=== PATIENT | male | born 1965 | race Asian ===

== ENCOUNTER 2020-02-08 23:50 | Inpatient (IN) | payer BC, OTHER ==
[~2020-02-08] VITALS: Ht 167.6 cm; Wt 69.2 kg
[2020-02-09 02:43] LABS: Red Blood Cells 4.86 10^6/uL (4.5-5.90); White Blood Cell 4.4 10^3/uL (4.4-10.8)
[2020-02-09 02:45] LABS: Hematocrit 49.6 % (41.0-53.0); Hemoglobin 16.3 g/dL (13.5-17.5); Mean Corpuscular Hemoglobin 33.6 pg (28.0-32.0); Platelet Count (auto) 70 10^3/uL (140-450)
[2020-02-09 02:59] LABS: Albumin 2.5 g/dL (3.4-5.0); Anion Gap 8 (5-15); BUN/Creatinine Ratio 17.5; Blood Urea Nitrogen 18 mg/dL (7-18); Calcium 7.9 mg/dL (8.5-10.1); Carbon Dioxide 22 mmol/L (21-32); Chloride 109 mmol/L (98-107); GFR African American 96 mL/min; GFR Non-African American 79 mL/min; Glucose 100 mg/dL (74-106); Sodium 139 mmol/L (136-145)
[2020-02-09 03:08] LABS: Alanine Aminotransferase 61 U/L (16-61); Alkaline Phosphatase 127 U/L (45-117); Aspartate Aminotransferase 142 U/L (15-37); Bilirubin, Total 1.7 mg/dL (0.2-1.0); Total Protein 6.9 g/dL (6.4-8.2)
[2020-02-09 03:11] LABS: Basophils % (manual) 0 (0.0-2.0); Blast Cells 0; Eosinophils % (manual) 0 (0-7); Metamyelocytes % 0; Myelocytes % 0; Promyelocytes % 0; Reactive Lymphocytes 0
[2020-02-09 03:36] LABS: Band Neutrophils % (manual) 5; Lymphocytes % (manual) 8 (10.0-50.0); Monocytes % (manual) 12 (0-12)
[2020-02-09] MEDS ORDERED: ACETAMINOPHEN 500 MG TAB PO PRN (05:45)
[2020-02-09] MEDS ORDERED: ONDANSETRON HCL 4 MG/2 ML VIAL IV PRN (05:45)
[2020-02-09] MEDS ORDERED: DOCUSATE SOD 100 MG CAP PO PRN (05:45)
[2020-02-09] MEDS ORDERED: NITROGLYCERIN 0.4 MG SL TAB SL PRN (05:45)
[2020-02-09] MEDS ORDERED: HYDROcodone-ACET 5/325MG TAB PO PRN (05:45)
[2020-02-09] MEDS ORDERED: MORPHINE SULF INJ 2 MG/ML SYRINGE 1ML IV PRN (05:45)
[2020-02-09 05:58] VITALS: BP 110/69
[2020-02-09] MEDS: ALBUTEROL SULF HFA 90MCG INH 200DOSE IN SCH ×3 (06:00→22:24)
[2020-02-09] MEDS: SODIUM CHLOR 0.9% PF (SALINE LOCK) 10ML VIAL/SYR IV SCH ×2 (06:48→14:00)
[2020-02-09] MEDS: BUDESONIDE (INHALATION) 180 MCG IH IN SCH ×2 (07:37→22:24)
[2020-02-09] MEDS ORDERED: DOXYCYCLINE 100MG/250ML 250 ML IV SCH (10:00)
[2020-02-09] MEDS: ZINC SULFATE 220mg CAP or TAB PO SCH (10:00)
[2020-02-09] MEDS: ENOXAPARIN SOD 40 MG/0.4 ML SYRINGE SC SCH (10:00)
[2020-02-09] MEDS ORDERED: PANTOPRAZOLE 40 MG/10 ML VIAL INJ IV SCH (10:00)
[2020-02-09] MEDS: ASCORBIC ACID 1,000 MG TAB PO SCH (10:00)
[2020-02-09] MEDS: DexAMETHasone SOD PHOS 10MG/1ML VIAL INJ IV SCH (10:00)
[2020-02-09] MEDS: CHOLECALCIFEROL (VITD3) 2,000 UNIT CAP PO SCH (10:00)
[2020-02-09] MEDS: MULTIPLE VITAMIN TAB PO SCH (10:00)
[2020-02-09] MEDS ORDERED: THIAMINE 100mg/ml INJ (200mg/2ml VIAL) IV ONE (15:00)
[2020-02-09] MEDS ORDERED: CYANOCOBALAMIN (B-12) 1000 MCG/1 ML VIAL IM ONE (15:00)
[2020-02-09] MEDS ORDERED: MULTIPLE VITAMINS W/ MINERALS TAB PO ONE (15:00)
[2020-02-09] MEDS ORDERED: FOLIC ACID 1 MG TAB PO ONE (15:00)
--- NOTE | 2020-02-09 21:49 | NUR ---
Respiratory note: PTS SPO2 CURRENTLY AT 87% ON 6L N/C. PT SWITCHED TO 8L OXYMIZER, SATS NOW AT 90-91%. NOTIFIED ER CHARGE OF PTS O2 SATS/OXYGEN DEMAND AND PT BEING IN TENT, STATES WILL TRY TO FIND HIM A BED IN ER. PTS 02 TANK 3/4 FULL AT THIS TIME.
[2020-02-09 22:43] LABS: Cholesterol 136 mg/dL (< 200); HDL Cholesterol 47 mg/dL (40-59); LDL Cholesterol 69 mg/dL (< 100); Triglycerides 106 mg/dL (< 150)
[2020-02-09] MEDS: CLINDAMYCIN 600MG IV 50 ML IV SCH (23:15)
[2020-02-10] MEDS: CLINDAMYCIN 600MG IV 50 ML IV SCH ×2 (05:58→14:00)
[2020-02-10] MEDS: BUDESONIDE (INHALATION) 180 MCG IH IN SCH ×2 (06:29→22:30)
[2020-02-10 06:32] LABS: Basophils # (auto) 0 10 ^3/uL (0-0.2); Eosinophils # (auto) 0 10 ^3/uL (0-0.8); Hematocrit 41.6 % (41.0-53.0); Monocytes # (auto) 0.5 10 ^3/uL (0-1.3); Neutrophils # (auto) 4.9 10 ^3/uL (1.6-8.6); Nucleated Red Blood Cells % 0.1 %
[2020-02-10 06:33] LABS: Hemoglobin 14.3 g/dL (13.5-17.5); Lymphocytes # (auto) 0.7 10 ^3/uL (0.4-5.4); Lymphocytes % (auto) 11.1 % (10.0-50.0); Mean Corpuscular Hemoglobin 34.8 pg (28.0-32.0); Mean Corpuscular Hgb Conc. 34.4 g/dL (32.0-36.0); Mean Corpuscular Volume 101.3 fL (80.0-100.0); Monocytes % (auto) 7.6 % (0.0-12.0); Neutrophils % (auto) 81.3 % (37.0-80.0); Platelet Count (auto) 72 10^3/uL (140-450); Red Cell Distribution Width 15.2 % (11.8-14.3)
[2020-02-10] MEDS: ALBUTEROL SULF HFA 90MCG INH 200DOSE IN SCH ×3 (06:39→22:30)
[2020-02-10 06:51] LABS: Calcium 7.7 mg/dL (8.5-10.1); Potassium 4.3 mmol/L (3.5-5.1)
[2020-02-10 06:55] LABS: BUN/Creatinine Ratio 23.8; Bilirubin, Total 1.2 mg/dL (0.2-1.0); Total Protein 5.5 g/dL (6.4-8.2)
[2020-02-10 07:00] LABS: Alcohol, Urine < 3.0 mg/dL (0-10); Amphetamine Screen, Urine NEGATIVE (NEGATIVE); Barbiturate Scree,Urine NEGATIVE (NEGATIVE); Benzodiazephine Screen, Urine NEGATIVE (NEGATIVE); Cannabinoid Screen, Urine NEGATIVE (NEGATIVE); Cocaine Screen, Urine NEGATIVE (NEGATIVE); Opiate Scree,Urine NEGATIVE (NEGATIVE); Phencyclidine Screen, Urine NEGATIVE (NEGATIVE)
[2020-02-10] MEDS: THIAMINE 100mg/ml INJ (200mg/2ml VIAL) IV SCH (08:38)
[2020-02-10] MEDS: DexAMETHasone SOD PHOS 10MG/1ML VIAL INJ IV SCH (08:38)
[2020-02-10] MEDS: MULTIPLE VITAMINS W/ MINERALS TAB PO SCH (08:39)
[2020-02-10] MEDS: MULTIPLE VITAMIN TAB PO SCH (08:39)
[2020-02-10] MEDS: CHOLECALCIFEROL (VITD3) 2,000 UNIT CAP PO SCH (08:39)
[2020-02-10] MEDS: ENOXAPARIN SOD 40 MG/0.4 ML SYRINGE SC SCH (08:39)
[2020-02-10] MEDS: ZINC SULFATE 220mg CAP or TAB PO SCH (08:39)
[2020-02-10] MEDS: ASCORBIC ACID 1,000 MG TAB PO SCH (08:39)
[2020-02-10] MEDS: FOLIC ACID 1 MG TAB PO SCH (08:39)
[2020-02-10] MEDS ORDERED: cefTRIAXone 1GM/50ML D5W 50 ML IV SCH (09:00)
[2020-02-10] MEDS: LORazepam 2MG/ML-1ML VIAL IV PRN ×2 (09:14→17:06)
[2020-02-10] MEDS ORDERED: REMDESIVIR PER PHARMACY IV SCH (11:45)
[2020-02-10] MEDS ORDERED: FUROSEMIDE 20 MG/2 ML VIAL IV ONE (16:30)
[2020-02-10] MEDS ORDERED: DOXYCYCLINE 100 MG TAB/CAP PO ONE (16:30)
[2020-02-10] MEDS ORDERED: POTASSIUM CHL 10 Meq TABLET PO ONE (16:30)
[2020-02-10] MEDS ORDERED: REMDESIVIR 200 MG in NS 210ml LOADING DOSE ADULT IV ONE (17:00)
[2020-02-10] MEDS ORDERED: DOXYCYCLINE 100 MG TAB/CAP ONE (17:02)
[2020-02-10 22:05] VITALS: BP 91/64
--- NOTE | 2020-02-10 22:05 | NUR ---
Telemetry admit from ER SHALONDA MANDEL admitted to Telemetry unit. Patient oriented to Lena Oleary, primary RN, unit, room, bed, and unit policies regarding patient care and visiting hours. Patient now on continuous telemetry monitoring, tele box #8 and telemetry reading on arrival to unit is NSR 67BPM. Patient placed on bedside oxygen 13L Oxymizer, weighed by bed scale and encouraged to call if they need something. All questions and concerns addressed, patient verbalized understanding. Patient is awake and alert x4, ambulatory. No s/s of distress noted at this time.
[2020-02-10] MEDS: FAMOTIDINE 20 MG TAB PO SCH (22:51)
[2020-02-11] VITALS (11 sets, daily range): BP systolic 97–117; BP diastolic 54–76
--- NOTE | 2020-02-11 00:25 | NUR ---
IV insertion IV access obtained, via clean sterile technique by inserting 20 gauge catheter at Left AC after 1 attempt. IV secured properly. No trauma to site. Patient tolerated well.
[2020-02-11] MEDS ORDERED: OMEGCAP2 PO (00:46)
[2020-02-11] MEDS ORDERED: MULTCAP45 PO (00:46)
--- NOTE | 2020-02-11 02:01 | NUR ---
BLOOD BANK CALL TO BLOOD BANK FOR [facility]. TECH STATES THEY WILL CALL WHEN PLASMA IS READY FOR PICKUP ONCE THAWED.
[2020-02-11] MEDS ORDERED: DOXYCYCLINE 100 MG TAB/CAP PO SCH (04:00)
--- NOTE | 2020-02-11 04:44 | NUR ---
[facility] TRANSFUSION COMPLETE NO S/S OF TRANSFUSION REACTION NOTED. PATIENT DENIES SYMPTOMS.
[2020-02-11] MEDS: ALBUTEROL SULF HFA 90MCG INH 200DOSE IN SCH ×3 (05:56→21:45)
[2020-02-11] MEDS: BUDESONIDE (INHALATION) 180 MCG IH IN SCH ×2 (05:56→21:45)
[2020-02-11 06:21] LABS: Basophils # (auto) 0 10 ^3/uL (0-0.2); Eosinophils # (auto) 0 10 ^3/uL (0-0.8); Lymphocytes # (auto) 0.7 10 ^3/uL (0.4-5.4); Mean Corpuscular Hemoglobin 34.4 pg (28.0-32.0); Mean Corpuscular Hgb Conc. 34.1 g/dL (32.0-36.0); Neutrophils # (auto) 8.9 10 ^3/uL (1.6-8.6); Red Blood Cells 3.91 10^6/uL (4.5-5.90); White Blood Cell 10.6 10^3/uL (4.4-10.8)
[2020-02-11 06:23] LABS: Hematocrit 39.4 % (41.0-53.0); Hemoglobin 13.4 g/dL (13.5-17.5); Lymphocytes % (auto) 6.5 % (10.0-50.0); Mean Corpuscular Volume 100.8 fL (80.0-100.0); Monocytes % (auto) 9.8 % (0.0-12.0); Neutrophils % (auto) 83.7 % (37.0-80.0); Nucleated Red Blood Cells % 0.2 %; Platelet Count (auto) 78 10^3/uL (140-450); Red Cell Distribution Width 14.9 % (11.8-14.3)
[2020-02-11 06:28] LABS: Potassium 3.7 mmol/L (3.5-5.1)
[2020-02-11 06:45] LABS: Albumin 2.1 g/dL (3.4-5.0); BUN/Creatinine Ratio 26.6; Calcium 7.7 mg/dL (8.5-10.1); Magnesium 2.4 mg/dL (1.6-2.6); Total Protein 5.7 g/dL (6.4-8.2)
[2020-02-11] MEDS ORDERED: IOHEXOL 350 MG/ML 100ML IJ ONE (07:25)
[2020-02-11] MEDS: FOLIC ACID 1 MG TAB PO SCH (11:48)
[2020-02-11] MEDS: CHOLECALCIFEROL (VITD3) 2,000 UNIT CAP PO SCH (11:48)
[2020-02-11] MEDS: FUROSEMIDE 20 MG/2 ML VIAL IV SCH (11:48)
[2020-02-11] MEDS: DexAMETHasone SOD PHOS 10MG/1ML VIAL INJ IV SCH (11:48)
[2020-02-11] MEDS: ASCORBIC ACID 1,000 MG TAB PO SCH (11:48)
[2020-02-11] MEDS: THIAMINE 100mg/ml INJ (200mg/2ml VIAL) IV SCH (11:48)
[2020-02-11] MEDS: POTASSIUM CHL 10 Meq TABLET PO SCH (11:48)
[2020-02-11] MEDS: MULTIPLE VITAMIN TAB PO SCH (11:48)
[2020-02-11] MEDS: FAMOTIDINE 20 MG TAB PO SCH ×2 (11:48→22:34)
[2020-02-11] MEDS: ENOXAPARIN SOD 40 MG/0.4 ML SYRINGE SC SCH (11:48)
[2020-02-11] MEDS: ZINC SULFATE 220mg CAP or TAB PO SCH (11:48)
[2020-02-11] MEDS: MULTIPLE VITAMINS W/ MINERALS TAB PO SCH (11:48)
[2020-02-11] MEDS ORDERED: SODIUM CHLORIDE 0.9% 1,000 ML IV ONE (14:45)
--- NOTE | 2020-02-11 18:30 | NUR ---
Patient ambulated to restroom Patient ambulated to restroom gait steady. Patient connected to O2 tank 15 L and able to carry O2 tank on his own.
[2020-02-11] MEDS: PIPERACILLIN-TAZOB 3.375GM 100 ML IV SCH (18:58)
[2020-02-11 20:18] LABS: INR 1.34 (0.9-1.15)
[2020-02-11] MEDS: REMDESIVIR 100mg in NS 230ml DAILYx4DAYS (NO VENT) IV SCH (22:30)
--- NOTE | 2020-02-11 22:30 | NUR ---
REMDESIVIR INFUSION STARTED VITALS WNL AT THIS TIME. INSTRUCTED PATIENT OF POSSIBLE INFUSION REACTIONS, HE VERBALIZED UNDERSTANDING.
--- NOTE | 2020-02-11 23:35 | NUR ---
REMDESIVIR INFUSION COMPLETE. PATIENT TOLERATED WELL. VITALS REMAIN WNL. NO S/S OF TRANSFUSION REACTION NOTED.
[2020-02-12] MEDS: PIPERACILLIN-TAZOB 3.375GM 100 ML IV SCH ×4 (00:08→19:05)
[2020-02-12] MEDS: BUDESONIDE (INHALATION) 180 MCG IH IN SCH ×2 (06:19→20:15)
[2020-02-12] MEDS: ALBUTEROL SULF HFA 90MCG INH 200DOSE IN SCH ×3 (06:19→20:15)
[2020-02-12 08:51] LABS: Calcium 7.2 mg/dL (8.5-10.1); Potassium 3.7 mmol/L (3.5-5.1)
[2020-02-12 08:53] VITALS: BP 104/66
[2020-02-12 08:57] LABS: BUN/Creatinine Ratio 23.6; Bilirubin, Total 1.3 mg/dL (0.2-1.0); Total Protein 5.4 g/dL (6.4-8.2)
[2020-02-12] MEDS: DexAMETHasone SOD PHOS 10MG/1ML VIAL INJ IV SCH (11:01)
[2020-02-12] MEDS: THIAMINE 100mg/ml INJ (200mg/2ml VIAL) IV SCH (11:01)
[2020-02-12] MEDS: FUROSEMIDE 20 MG/2 ML VIAL IV SCH (11:02)
[2020-02-12] MEDS: FOLIC ACID 1 MG TAB PO SCH (11:03)
[2020-02-12] MEDS: POTASSIUM CHL 10 Meq TABLET PO SCH (11:03)
[2020-02-12] MEDS: MULTIPLE VITAMINS W/ MINERALS TAB PO SCH (11:03)
[2020-02-12] MEDS: ZINC SULFATE 220mg CAP or TAB PO SCH (11:03)
[2020-02-12] MEDS: CHOLECALCIFEROL (VITD3) 2,000 UNIT CAP PO SCH (11:04)
[2020-02-12] MEDS: ASCORBIC ACID 1,000 MG TAB PO SCH (11:04)
[2020-02-12] MEDS: FAMOTIDINE 20 MG TAB PO SCH ×2 (11:04→22:02)
[2020-02-12] MEDS: ENOXAPARIN SOD 40 MG/0.4 ML SYRINGE SC SCH (11:04)
--- NOTE | 2020-02-12 12:06 | NUR ---
Patient belongings at bedside Patient phone senior web analyst and belongings delivered to bedside at this time.
[2020-02-12 12:16] VITALS: BP 104/66
[2020-02-12 12:39] VITALS: BP 93/56
--- NOTE | 2020-02-12 13:31 | NUR ---
GREGORIOT/ paged Dr. Merrill paged at this time regarding increased heart rate. HR sustained for about 5 seconds in the 150's on two different occasions about a minute apart. Patient's HR baseline 62-67 BPM, per patient no previous history of irregular heart rhythm. New orders received at this time to place Cardiology consult. Will carry out orders and continue to monitor patient.
[2020-02-12] MEDS ORDERED: POTASSIUM CHL 20 Meq TABLET PO ONE (14:30)
--- NOTE | 2020-02-12 14:35 | NUR ---
Nutrition Assessment Note Please see attached link for complete assessment [employer] needs BW 70 [id number] kcals (25-30kcal/kgBW), Est Protein needs: 70-91 gms/day (1.0-1.3 gm/kgBW r/t hypoalb). Will continue to monitor and reassess prn. Addendum: 02/12/20 at [address] Amended: Links added.
[2020-02-12 17:00] VITALS: BP 104/66
[2020-02-12 22:00] VITALS: BP 106/59
[2020-02-12] MEDS: REMDESIVIR 100mg in NS 230ml DAILYx4DAYS (NO VENT) IV SCH (22:01)
--- NOTE | 2020-02-12 22:01 | NUR ---
Remdesivir infusion started Remdesivir infusion started at this time after patient instructed on possible infusion reactions and s/s to look out for. Patient verbalizes understanding. will continue to monitor patient per infusion protocol. VS: T- 97.6 HR- 72 BP- 119/70 RR- 20, 96% O2
--- NOTE | 2020-02-12 23:05 | NUR ---
Remdesivir infusion completed Patient tolerated medication infusion without any s/s of Nausea, Vomiting or significant decrease in BP. Will continue to monitor. 15 min VS: HR- 70 BP- 111/55 RR- 19, 96% O2 Post infusion VS: HR- 69 BP- 111/61 RR- 20, 95% O2
[2020-02-13] MEDS: PIPERACILLIN-TAZOB 3.375GM 100 ML IV SCH ×3 (01:18→12:00)
--- NOTE | 2020-02-13 03:12 | NUR ---
Resumed care of patient.
--- NOTE | 2020-02-13 04:20 | NUR ---
Rounds Patient is comfortably resting, on 7L Oxymizer Sp02 at 95%. Breath sounds even and unlabored. No s/s of distress/sob noted/stated. Bed at lowest locked position and call light within reach. Will continue to monitor PRN.
[2020-02-13 05:32] VITALS: BP 102/59
[2020-02-13] MEDS: ALBUTEROL SULF HFA 90MCG INH 200DOSE IN SCH (06:03)
[2020-02-13] MEDS: BUDESONIDE (INHALATION) 180 MCG IH IN SCH ×2 (06:03→19:54)
[2020-02-13 06:07] LABS: Basophils # (auto) 0 10 ^3/uL (0-0.2); Basophils % (auto) 0.1 % (0.0-2.0); Eosinophils # (auto) 0 10 ^3/uL (0-0.8); Lymphocytes # (auto) 0.6 10 ^3/uL (0.4-5.4)
[2020-02-13 06:10] LABS: Hematocrit 37.7 % (41.0-53.0); Hemoglobin 13.2 g/dL (13.5-17.5); Lymphocytes % (auto) 8.5 % (10.0-50.0); Mean Corpuscular Hemoglobin 34.9 pg (28.0-32.0); Mean Corpuscular Hgb Conc. 34.9 g/dL (32.0-36.0); Mean Corpuscular Volume 99.9 fL (80.0-100.0); Monocytes # (auto) 0.8 10 ^3/uL (0-1.3); Monocytes % (auto) 10.4 % (0.0-12.0); Neutrophils # (auto) 6.1 10 ^3/uL (1.6-8.6); Nucleated Red Blood Cells % 0.2 %; Platelet Count (auto) 59 10^3/uL (140-450); Red Blood Cells 3.77 10^6/uL (4.5-5.90); Red Cell Distribution Width 14.8 % (11.8-14.3); White Blood Cell 7.5 10^3/uL (4.4-10.8)
[2020-02-13 06:16] LABS: Albumin 1.8 g/dL (3.4-5.0); Magnesium 2.5 mg/dL (1.6-2.6); Potassium 3.8 mmol/L (3.5-5.1)
[2020-02-13 06:25] LABS: BUN/Creatinine Ratio 32.1; Bilirubin, Direct 0.6 mg/dL (0-0.2); Bilirubin, Total 1.2 mg/dL (0.2-1.0); CRP High Sensitivity 1.23 mg/dL (< 0.3); Total Protein 4.9 g/dL (6.4-8.2)
--- NOTE | 2020-02-13 08:25 | NUR ---
Opening Shift Note Received report from BARAK Hernandez, Assumed care of patient, patient asleep with no S/S of distress. Oxymizer in place set at 7.0 L. Bed in lowest position, call light within reach, will continue to monitor for changes Q1hr and PRN.
[2020-02-13 08:49] VITALS: BP 105/65
--- NOTE | 2020-02-13 09:18 | NUR ---
PATIENT ROUNDS PATIENT LAYING SUPINE IN BED, OXYMIZER OFF PATIENT. PER PATIENT ONLY NEEDS OXYMIZER ON WHEN SITTING UP AND AMBULATING BUT OTHER SHELL FEELS FINE. PATIENT EDUCATED TO PLACE OXYMIZER BACK ON WHEN SIGNS OF SOB, PATIENT VERBALIZED UNDERSTANDING. WILL CONTINUE TO MONITOR.
[2020-02-13] MEDS: THIAMINE 100mg/ml INJ (200mg/2ml VIAL) IV SCH (09:29)
[2020-02-13] MEDS: FUROSEMIDE 20 MG/2 ML VIAL IV SCH (09:29)
[2020-02-13] MEDS: FOLIC ACID 1 MG TAB PO SCH (09:29)
[2020-02-13] MEDS: DexAMETHasone SOD PHOS 10MG/1ML VIAL INJ IV SCH (09:29)
[2020-02-13] MEDS: ENOXAPARIN SOD 40 MG/0.4 ML SYRINGE SC SCH (09:30)
[2020-02-13] MEDS: ASCORBIC ACID 1,000 MG TAB PO SCH (09:30)
[2020-02-13] MEDS: CHOLECALCIFEROL (VITD3) 2,000 UNIT CAP PO SCH (09:30)
[2020-02-13] MEDS: ZINC SULFATE 220mg CAP or TAB PO SCH (09:30)
[2020-02-13] MEDS: POTASSIUM CHL 10 Meq TABLET PO SCH (09:30)
[2020-02-13] MEDS: FAMOTIDINE 20 MG TAB PO SCH ×2 (09:30→21:52)
[2020-02-13] MEDS: MULTIPLE VITAMINS W/ MINERALS TAB PO SCH (09:30)
--- NOTE | 2020-02-13 11:30 | NUR ---
MD REYNOLDS AT BEDSIDE MD REYNOLDS MAKING ROUNDS, INFORMED PATIENT ON IMPORTANCE OF PRONING IN BED, PATIENT VERBALIZED UNDERSTANDING. NO NEW ORDERS RECEIVED.
[2020-02-13] MEDS ORDERED: POTASSIUM CHL 20 Meq TABLET PO ONE (11:45)
[2020-02-13 13:00] VITALS: BP 100/58
--- NOTE | 2020-02-13 14:59 | NUR ---
per Tiffany CALDERON, patient is to receive an oxygen tank delivery from [facility] today at 1700.
--- NOTE | 2020-02-13 15:01 | NUR ---
Per Eulalia Arodn from will be delivered at 5 pm today at hospital.
[2020-02-13 16:52] VITALS: BP 109/70
--- NOTE | 2020-02-13 18:55 | NUR ---
Patients oxygen has been delivered to unit and bedroom #237.
--- NOTE | 2020-02-13 19:10 | NUR ---
care endorsed to Darwin CANCINO.
--- NOTE | 2020-02-13 19:16 | NUR ---
Opening Shift Note Assumed care of patient, awake, alert and oriented x4, on 7L of oxygen via oxymizer with even and unlabored respirations, no S/S of distress/SOB or pain. Patient able to ambulate independently, bed in lowest locked position, side rails up x2, and call light within reach. Instructed on POC and to call for assist PRN, will continue to monitor for changes Q1hr and PRN.
[2020-02-13] MEDS: ALBUTEROL SULF HFA 90MCG INH 200DOSE IN PRN (19:54)
[2020-02-13] MEDS: DOXYCYCLINE 100 MG TAB/CAP PO SCH (21:52)
[2020-02-13 22:00] VITALS: BP 101/59
[2020-02-13] MEDS: REMDESIVIR 100mg in NS 230ml DAILYx4DAYS (NO VENT) IV SCH (22:05)
[2020-02-14 05:00] VITALS: BP 106/57
[2020-02-14 06:33] LABS: Potassium 4.2 mmol/L (3.5-5.1)
[2020-02-14 06:40] LABS: Albumin 1.9 g/dL (3.4-5.0); Bilirubin, Direct 0.5 mg/dL (0-0.2); Bilirubin, Total 1.3 mg/dL (0.2-1.0); Magnesium 2.4 mg/dL (1.6-2.6); Total Protein 5.5 g/dL (6.4-8.2)
[2020-02-14] MEDS: BUDESONIDE (INHALATION) 180 MCG IH IN SCH ×2 (06:47→22:50)
[2020-02-14] MEDS: ALBUTEROL SULF HFA 90MCG INH 200DOSE IN PRN (06:47)
[2020-02-14 08:00] VITALS: BP 95/57
--- NOTE | 2020-02-14 08:04 | NUR ---
Opening Shift Note Received report from overnight caregiver RN, Assumed care of patient, awake and alert. Oxymizer in place set at 4L, No S/S of distress/SOB or pain. Instructed on POC and to call for assist PRN, will continue to monitor for changes Q1hr and PRN. Bed in lowest position, call light within reach.
[2020-02-14 08:49] VITALS: BP 95/57
[2020-02-14] MEDS: FUROSEMIDE 20 MG/2 ML VIAL IV SCH (09:15)
[2020-02-14] MEDS: FOLIC ACID 1 MG TAB PO SCH (09:15)
[2020-02-14] MEDS: MAGNESIUM OXIDE 400 MG TAB PO SCH (09:15)
[2020-02-14] MEDS: FAMOTIDINE 20 MG TAB PO SCH ×2 (09:15→22:22)
[2020-02-14] MEDS: ENOXAPARIN SOD 40 MG/0.4 ML SYRINGE SC SCH (09:15)
[2020-02-14] MEDS: THIAMINE 100mg/ml INJ (200mg/2ml VIAL) IV SCH (09:15)
[2020-02-14] MEDS: ZINC SULFATE 220mg CAP or TAB PO SCH (09:15)
[2020-02-14] MEDS: CHOLECALCIFEROL (VITD3) 2,000 UNIT CAP PO SCH (09:15)
[2020-02-14] MEDS: MULTIPLE VITAMINS W/ MINERALS TAB PO SCH (09:15)
[2020-02-14] MEDS: POTASSIUM CHL 10 Meq TABLET PO SCH (09:15)
[2020-02-14] MEDS: DexAMETHasone SOD PHOS 10MG/1ML VIAL INJ IV SCH (09:15)
[2020-02-14] MEDS: ASCORBIC ACID 1,000 MG TAB PO SCH (09:15)
[2020-02-14] MEDS: DOXYCYCLINE 100 MG TAB/CAP PO SCH ×2 (09:15→22:22)
--- NOTE | 2020-02-14 09:16 | NUR ---
Blood pressure rechecked BP 95/57 rechecked now 105/62. Patient asymptomatic, encouraged to drink more fluids. Informed patient to call if feeling symptomatic, will continue to monitor.
--- NOTE | 2020-02-14 09:50 | NUR ---
Nasal Cannula Per Dr. Merrill, switch patient to a NC. Patient now on 4L NC, saturating at 90%-93%. No s/s of distress/sob noted/stated. Will continue to monitor. Addendum: 02/14/20 at 1031 by Brandee Logan RN re-assessment patient on 4L NC saturating at 95%. Will continue to monitor.
--- NOTE | 2020-02-14 11:00 | NUR ---
Patient is on 3L NC and SP02 at 91% Dr. Merrill informed/aware. No s/s of distress/sob
[2020-02-14 11:25] LABS: Hepatitis B Surface Antibody Negative
[2020-02-14 11:52] LABS: Hepatitis A Total Antibody Positive
[2020-02-14] MEDS ORDERED: ZINC220T6 PO (12:07)
[2020-02-14] MEDS ORDERED: ALBUAER3 IN (12:07)
[2020-02-14] MEDS ORDERED: BUDE2SUS3 IN (12:07)
[2020-02-14] MEDS ORDERED: FAMO20TA10 PO (12:07)
[2020-02-14] MEDS ORDERED: METH4PAK PO (12:07)
[2020-02-14] MEDS ORDERED: ASCO10003 PO (12:18)
[2020-02-14] MEDS ORDERED: CHOL1CAP47 PO (12:18)
[2020-02-14 12:44] LABS: Hepatitis C Antibody Negative (Negative)
[2020-02-14 13:20] VITALS: BP 97/64
--- NOTE | 2020-02-14 13:35 | NUR ---
silvestre JOSHUA regarding critical lab. awaiting call back.
--- NOTE | 2020-02-14 15:23 | NUR ---
called in patients new medications, faxed the patients face sheet to [facility]. [phone].
--- NOTE | 2020-02-14 19:19 | NUR ---
Opening Shift Note Assumed care of patient, awake, alert and oriented X4, on 3L of oxygen via NC with even and unlabored respirations, no S/S of distress/SOB or pain. Patient able to ambulate independently, bed in lowest locked position, side rails up x2, and call light within reach. Instructed on POC and to call for assist PRN, will continue to monitor for changes Q1hr and PRN.
[2020-02-14 22:17] VITALS: BP 99/69
[2020-02-14] MEDS: REMDESIVIR 100mg in NS 230ml DAILYx4DAYS (NO VENT) IV SCH (22:21)
[2020-02-15] MEDS: ALBUTEROL SULF HFA 90MCG INH 200DOSE IN PRN ×2 (01:03→12:03)
[2020-02-15 05:12] VITALS: BP_SYST 101; BP_SYST 92; BP_DIAS 46; BP_DIAS 60
[2020-02-15 06:17] LABS: Hepatitis B Core Total AB Positive; Hepatitis B Surface Antigen Positive (Negative)
[2020-02-15] MEDS: BUDESONIDE (INHALATION) 180 MCG IH IN SCH (06:50)
[2020-02-15 08:00] VITALS: BP 100/68
[2020-02-15] MEDS: FUROSEMIDE 20 MG/2 ML VIAL IV SCH (10:00)
[2020-02-15] MEDS: ENOXAPARIN SOD 40 MG/0.4 ML SYRINGE SC SCH (10:00)
[2020-02-15] MEDS: THIAMINE 100mg/ml INJ (200mg/2ml VIAL) IV SCH (10:32)
[2020-02-15] MEDS: DexAMETHasone SOD PHOS 10MG/1ML VIAL INJ IV SCH (10:32)
[2020-02-15] MEDS: MAGNESIUM OXIDE 400 MG TAB PO SCH (10:33)
[2020-02-15] MEDS: POTASSIUM CHL 10 Meq TABLET PO SCH (10:33)
[2020-02-15] MEDS: FAMOTIDINE 20 MG TAB PO SCH (10:33)
[2020-02-15] MEDS: ZINC SULFATE 220mg CAP or TAB PO SCH (10:33)
[2020-02-15] MEDS: FOLIC ACID 1 MG TAB PO SCH (10:33)
[2020-02-15] MEDS: MULTIPLE VITAMINS W/ MINERALS TAB PO SCH (10:33)
[2020-02-15] MEDS: DOXYCYCLINE 100 MG TAB/CAP PO SCH (10:34)
[2020-02-15] MEDS: CHOLECALCIFEROL (VITD3) 2,000 UNIT CAP PO SCH (10:34)
[2020-02-15] MEDS: ASCORBIC ACID 1,000 MG TAB PO SCH (10:34)
--- NOTE | 2020-02-15 10:40 | NUR ---
Cherelle JACKSON AT BEDSIDE. INFORMED OF PATIENT STATUS. INFORMED OF LASIX AND LOVENOX BEING HELD DUE TO LAB VALUES. NO NEW ORDERS RECEIVED.
[2020-02-15] MEDS ORDERED: DOXY-286 PO (11:29)
[2020-02-15 12:00] VITALS: BP 99/50
--- NOTE | 2020-02-15 12:53 | NUR ---
Nutrition Followup Note Wt 69.2kg Pt is covid positive in covid isolation. Pt is on oxygen with no new distress, able to ambulate per RN note. Pt is with a good appetite aeb pt is on a 2g Na diet with an avg po intake of 79% x 2 days per Rn note Est [employer] needs BW 70 [id number] kcals (25-30kcal/kgBW), Est Protein needs: 70-91 gms/day (1.0-1.3 gm/kgBW r/t hypoalb). Will continue to monitor and reassess prn. Labs: BUN 26H, GLUC 129H, Alb 1.9L, T bili 1.3H BM: pt with 2 BMs 02/14 per Rn note Skin: BS 20 low risk, full details in child care attendant school note PES: Altered nutrition related lab values r.t current medical condition aeb elev BUN hyperglcyemia hypocalcemia mild hypoalb Comments 1) consider prostat 1 packet bid 2) continue current plan of care Expected Outcomes/Goals: pt will have improved labs F/u mod 3-5 days
--- NOTE | 2020-02-15 14:45 | NUR ---
PATIENTS MEDICATION FROM [facility] DELIVERED TO PATIENT. PATIENT INSTRUCTED ON ALL MEDICATION.
--- NOTE | 2020-02-15 14:58 | NUR ---
Discharge instructions given as ordered. Encourage to follow up with PMD as instructed. Instructed to follow up with pcp in 1-2 weeks, patient and son priscilla both instructed verbally and demonstration provided on oxygen use with oxygen tank provided. instructed on all medication and proper use and side effects. All questions and concerns addressed. Patient verbalized understanding. Medication reconciliation form completed and copy given to patient. IV removed with catheter intact, pressure dressing applied. Telemetry unit returned to ICU. Patient taken to vehicle via wheelchair with all personal belongings, accompanied by staff and family member. No distress noted at time of departure.
== END 2020-02-15 14:58 | disposition home or self-care (01) | DRG 871 ==
LOC: EDBD 23:50 → ER 23:50 → TELE 23:51 → TELE-EAST 02-10 22:05
PROVIDERS: ADMIT Nurse Practitioner Family; ATTEND Internal Medicine
PROC: XW033E5 Introduction of Remdesivir Anti-infective into Peripheral Vein, Percutaneous Approach, New Technology Group 5 (ICD-10-PCS; principal; 2020-02-10)
PROC: XW13325 Transfusion of Convalescent Plasma (Nonautologous) into Peripheral Vein, Percutaneous Approach, New Technology Group 5 (ICD-10-PCS; 2020-02-11)
DX: A41.89 Other specified sepsis (principal); J12.89 Other viral pneumonia; J96.01 Acute respiratory failure with hypoxia; U07.1 COVID-19; D61.818 Other pancytopenia; D68.4 Acquired coagulation factor deficiency; I47.1 Supraventricular tachycardia; K76.6 Portal hypertension; J91.8 Pleural effusion in other conditions classified elsewhere; D69.59 Other secondary thrombocytopenia; E55.9 Vitamin D deficiency, unspecified; F10.10 Alcohol abuse, uncomplicated; F17.200 Nicotine dependence, unspecified, uncomplicated; J01.00 Acute maxillary sinusitis, unspecified; K80.20 Calculus of gallbladder without cholecystitis without obstruction; K70.30 Alcoholic cirrhosis of liver without ascites; R16.1 Splenomegaly, not elsewhere classified; Y90.9 Presence of alcohol in blood, level not specified; D75.89 Other specified diseases of blood and blood-forming organs
CPT/HCPCS: 36415; 36600; 71045; 71275; 76700; 80053; 80061; 80076; 80307; 82306; 82728; 82805; 83036; 83615; 83735; 83880; 84132; 84443; 84484; 85007; 85025; 85027; 85379; 85610; 86141; 86704; 86706; 86708; 86803; 86850; 86900; 86901; 87340; 87426; 93005; 93970; 94640; 97163; C9113; G0378; J0696; J1100; J2543; J3490